=== PATIENT | female | born 1985 | race Two or more races ===

== ENCOUNTER 2024-07-18 17:36 | Emergency (ER) | payer SELFPAY ==
[2024-07-18 17:51] VITALS: BP 127/84; PULSE 78; RESP 16; TEMP 36.7; O2SAT 100; BMI 32.8
--- NOTE | 2024-07-18 18:27 | EKG_ITS ---
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
--- NOTE | 2024-07-18 18:45 | PD.EDRME ---
Rapid Medical Screening Exam [facility] Arrival date/time: 07/18/24 17:36 39F with no significant PMH presents to ED with some chest/ab pressure. Patient was upset when she found out her EKG was NSR. Patient eloped. Chief Complaint: Chest Pain Vital signs: Vital Signs Temperature 98.1 F 07/18/24 17:51 Pulse Rate 78 07/18/24 17:51 Respiratory Rate 16 07/18/24 17:51 Blood Pressure 127/84 07/18/24 17:51 Pulse Oximetry (%) 100 07/18/24 17:51 Oxygen Delivery Method Room Air 07/18/24 17:51
--- NOTE | 2024-07-18 18:45 | PC.NURSE ---
Pt assumed the provider was making fun of the reason why she was here. Provider made a comment out in the hallway about a different pt and the pt overheard this comment and assumed it was her who he was talking about. Pt left the room yelling. I told pt that he was not talking about her but she did not believe me and walked out.
== END 2024-07-18 18:45 | disposition left against medical advice (07) ==
PROVIDERS: Emergency Provider Emergency Medicine
DX: R07.89 Other chest pain (principal); Z53.21 Procedure and treatment not carried out due to patient leaving prior to being seen by health care provider
CPT/HCPCS: 93005; 99281

== ENCOUNTER → 2024-07-18 | Outpatient (CLI) | payer BC, SELFPAY ==
[2024-07-18 07:29] LABS: Misc Send Out* See Sep Rpt
[2024-07-18 08:04] LABS: Collection Type, Urine Clean Catch
[2024-07-18 08:37] LABS: Urea Breath Test Positive (Negative)
[2024-07-18 08:40] LABS: Bilirubin,Urine Negative (Negative); Blood,Urine Trace (Negative); Clarity,Urine Clear (Clear/Hazy); Color,Urine Yellow (Lt Yel-Yel); Glucose, Urine Negative (Negative); Ketones,Urine Negative (Negative); Leukocyte Esterase,Urine Negative (Negative); Nitrite,Urine Negative (Negative); Protein,Urine Trace (Neg - Trace); RBC,Urine 10 /hpf (0-3); Specific Gravity,Urine 1.029 (1.001-1.035); Squamous Epithelial Cell,Urine 8 /hpf (0-5); Urobilinogen,Urine Negative mg/dL (0.0-1.0); WBC,Urine 2 /hpf (0-5)
[2024-07-18 08:42] LABS: Basophils % (Auto) 0 % (0-2.5); Eosinophils # (Auto) 0.2 Thou/mm3 (0.0-0.5); Eosinophils % (Auto) 2 % (0-10); Hematocrit 42.1 % (36.0-46.0); Hemoglobin 14.5 g/dL (12.0-16.0); Immature Granulocytes % (Auto) 0 % (0-0); Immature Granulocytes Auto 0.02 Thou/mm3 (0.00-0.00); Lymphocytes # (Auto) 2.7 Thou/mm3 (1.0-4.8); Lymphocytes % (Auto) 40 % (10-50); Mean Corpuscular HGB Conc 34.4 g/dl (31.0-37.0); Mean Corpuscular Hemoglobin 31.1 pg (25.0-35.0); Mean Corpuscular Volume 90 fL (80-100); Monocytes # (Auto) 0.7 Thou/mm3 (0.0-0.8); Monocytes % (Auto) 10 % (0-12); Neutrophils # (Auto) 3.2 Thou/mm3 (1.8-7.7); Neutrophils % (Auto) 48 % (37-80); Nucleated Red Blood Cell % 0 /100 WBC (0); Platelet Count 249 Thou/mm3 (140-440); Red Blood Count 4.66 Miln/mm3 (4.00-5.20); White Blood Count 6.8 Thou/mm3 (3.6-11.0)
[2024-07-18 08:47] LABS: Alanine Aminotransferase 20 U/L (10-49); Albumin, Serum 4.3 gm/dL (3.5-5.0); Albumin/Globulin Ratio 1.8 (1.2-2.2); Alkaline Phosphatase 71 U/L (46-116); Amylase 85 U/L (30-118); Anion Gap 6 (7-16); Aspartate Amino Transferase 15 U/L (0-34); BUN/Creatinine Ratio 24 Ratio (12-20); Bilirubin,Total 0.5 mg/dL (0.3-1.2); Blood Urea Nitrogen 19 mg/dL (9-23); C-Reactive Protein 0.6 mg/dL (0.0-0.9); Calcium 9.4 mg/dL (8.3-10.6); Calcium (Corrected) 9.4 mg/dL (8.5-10.1); Carbon Dioxide 23.8 mMol/L (20.0-31.0); Chloride 107 mMol/L (98-107); Creatinine (Component) 0.8 mg/dL (0.6-1.3); Globulin 2.4 gm/dL (2.3-3.5); Glucose 108 mg/dL (74-106); Lipase 36 U/L (12-53); Osmolality,Calculated 277 (275-295); Potassium 4.1 mMol/L (3.4-5.1); Sodium 137 mMol/L (136-145); Total Protein 6.7 gm/dL (5.7-8.2); eGFR > 60 See Note
== END | disposition home or self-care (01) ==
PROVIDERS: PCP Internal Medicine; Referring Provider Specialist; Visit Provider Specialist
DX: R10.0 Acute abdomen (principal); B96.81 Helicobacter pylori [H. pylori] as the cause of diseases classified elsewhere
CPT/HCPCS: 36415; 80053; 81001; 82150; 83013; 83014; 83690; 85025; 86021; 86036; 86140; 86671

== ENCOUNTER → 2024-08-05 | Outpatient (CLI) | payer BC, SELFPAY ==
[2024-08-12 06:25] LABS: Calprotectin, Stool* 10 mcg/g
== END | disposition home or self-care (01) ==
LOC: SLDO 09:38
PROVIDERS: Referring Provider Specialist; Visit Provider Specialist
DX: R10.0 Acute abdomen (principal)
CPT/HCPCS: 83993

== ENCOUNTER → 2024-08-28 | Outpatient (CLI) | payer BC, SELFPAY ==
[2024-08-25 17:46] LABS: HCG Qualitative,Urine Negative
--- NOTE | 2024-08-28 09:00 | XR_ITS ---
Examination: CT abdomen with intravenous contrast CT pelvis with intravenous contrast 2-D coronal reconstructions 2-D sagittal reconstructions Date and time of exam:August 28, 2024 0958 hours Comparison May 03, 2012 INDICATIONS: Abdominal pain diarrhea nausea beginning 2 weeks ago. CTDI: vol (mGy) 10.4 DLP: (mGycm) 615 Technique: Multiple axial sections of the abdomen and pelvis have been obtained. 64 slice high-resolution scanner used. 3 mm axial sections have been obtained, post intravenous injection 60 cc Isovue-370, 30 cc dilute Gastrografin administered orally 2-D sagittal, coronal reconstructions obtained. Low dose protocols were performed. One or more of the following dose reduction techniques were used; automated exposure control, adjustment of the mA and/or KV according to patient size, use of iterative reconstruction technique. Findings: No focal liver or splenic lesions Absent gallbladder No pancreatic or adrenal mass No renal or ureteral calculi, no hydronephrosis Aorta normal size Normal appendix No bowel obstruction Intrauterine device satisfactory position Urinary bladder intact IMPRESSION: No renal or ureteral calculi, no hydronephrosis Normal appendix No nonspecific colitis or enteritis pattern
== END | disposition home or self-care (01) ==
PROVIDERS: PCP Internal Medicine; Referring Provider Specialist; Visit Provider Specialist
DX: R10.0 Acute abdomen (principal); Z32.00 Encounter for pregnancy test, result unknown
CPT/HCPCS: 74177; 81025; A4649; Q9963; Q9967

== ENCOUNTER 2024-09-08 07:30 | Day surgery (SDC) | payer BC, SELFPAY ==
[2024-09-05 10:31] LABS: HCG Qualitative,Urine Negative
[2024-09-05 14:14] VITALS: BMI 31.3
[2024-09-08] VITALS (10 sets, daily range): BP systolic 115–148; BP diastolic 78–94; PULSE 73–144; RESP 10–22; TEMP 36.1–36.9; O2SAT 97–100; BMI 33.0
[2024-09-08] MEDS: DiphenhydrAMINE INJ 50 MG/ML VIAL 25 MG IV (09:40)
[2024-09-08] MEDS: fentaNYL CIT INJ 50 mCg/ML AMP 2ML (ASD USE ONLY) IV (09:42)
[2024-09-08] MEDS: MEPERIDINE INJ 25 MG/ML VIAL (ASD USE ONLY) IV (09:48)
[2024-09-08] MEDS: ONDANSETRON INJ 2 MG/ML INJ 2 ML 4 MG IV (09:48)
[2024-09-08] MEDS: MIDAZOLAM INJ 1 MG/ML VIAL 2 ML (ASD USE ONLY) 2 MG IV (09:53)
[2024-09-08 10:01] LABS: Misc Send Out* See Sep Rpt
== END 2024-09-08 10:44 | disposition home or self-care (01) ==
PROVIDERS: PCP Internal Medicine; Referring Provider Specialist; Visit Provider Specialist
PROC: (CPT 43239; principal; 2024-09-08 10:15)
DX: K20.90 Esophagitis, unspecified without bleeding (principal); K22.2 Esophageal obstruction; K29.60 Other gastritis without bleeding; K29.50 Unspecified chronic gastritis without bleeding; B96.81 Helicobacter pylori [H. pylori] as the cause of diseases classified elsewhere
CPT/HCPCS: 43239; 43248; 81025; 87081; 87181; 87205; A4649; C1769; J1200; J2175; J2250; J2405; J3010

== ENCOUNTER → 2024-11-03 | Outpatient (CLI) | payer BC, SELFPAY ==
[2024-11-04 12:26] LABS: BVAG Candida Negative (Negative); Bacterial Vaginosis Markers Negative (Negative); Candida glabrata Positive (Negative); Candida krusei PCR Negative (Negative); Trichomonas Negative (Negative)
== END | disposition home or self-care (01) ==
LOC: SLDO 14:26
PROVIDERS: Referring Provider Specialist; Visit Provider Specialist
DX: N76.0 Acute vaginitis (principal); A59.01 Trichomonal vulvovaginitis; B37.89 Other sites of candidiasis
CPT/HCPCS: 81514

== ENCOUNTER → 2024-12-08 | Outpatient (CLI) | payer BC, SELFPAY ==
--- NOTE | 2024-12-08 14:51 | XR_ITS ---
Examination: Pelvic ultrasound, transabdominal, complete Technique: Transabdominal ultrasound of the pelvis performed using grayscale imaging Date and time of exam: December 08, 2024 1548 hours INDICATIONS: Hematuria episodes beginning 2 months ago pelvic pain FINDINGS: Uterus 8.1 cm, intrauterine device satisfactory position Endometrial stripe 0.5 cm Right ovary 2.8 cm arterial flow 15 mm follicular cyst Left ovary 2.7 cm arterial flow IMPRESSION: No uterine mass or intrauterine gestation
--- NOTE | 2024-12-08 14:51 | XR_ITS ---
Examination: Retroperitoneal ultrasound, complete Technique: Multiple high resolution grayscale images of the retroperitoneum obtained, including kidneys and bladder. Exam date and time:December 08, 2024 1514 hrs. Indications: Difficulty with urination 2 months Findings: Right kidney 10.5 cm cortex 1.9 cm Left kidney 11.9 cm cortex 1.8 cm No hydronephrosis or renal calculi Mild bilateral renal parenchymal scar formation No bladder mass Bladder prevoid volume 179 cc postvoid volume 9 cc Impression: Mild renal parenchymal scar formation No hydronephrosis
== END | disposition home or self-care (01) ==
LOC: CDIM 14:24
PROVIDERS: PCP Internal Medicine; Referring Provider Internal Medicine; Visit Provider Internal Medicine
DX: R31.9 Hematuria, unspecified (principal)
CPT/HCPCS: 76770; 76856

== ENCOUNTER → 2025-02-10 | Outpatient (CLI) | payer BC, SELFPAY ==
[2025-02-10 16:31] LABS: Basophils # (Auto) 0.1 Thou/mm3 (0.0-0.2); Basophils % (Auto) 1 % (0-2.5); Eosinophils # (Auto) 0.2 Thou/mm3 (0.0-0.5); Eosinophils % (Auto) 3 % (0-10); Hematocrit 38.9 % (36.0-46.0); Hemoglobin 14.2 g/dL (12.0-16.0); Immature Granulocytes % (Auto) 0 % (0-0); Immature Granulocytes Auto 0.02 Thou/mm3 (0.00-0.00); Lymphocytes # (Auto) 2.8 Thou/mm3 (1.0-4.8); Lymphocytes % (Auto) 39 % (10-50); Mean Corpuscular HGB Conc 36.5 g/dl (31.0-37.0); Mean Corpuscular Hemoglobin 31.4 pg (25.0-35.0); Mean Corpuscular Volume 86 fL (80-100); Monocytes # (Auto) 0.7 Thou/mm3 (0.0-0.8); Monocytes % (Auto) 9 % (0-12); Neutrophils # (Auto) 3.5 Thou/mm3 (1.8-7.7); Neutrophils % (Auto) 49 % (37-80); Nucleated Red Blood Cell % 0 /100 WBC (0); Platelet Count 246 Thou/mm3 (140-440); RDW Standard Deviation 39.3 fL (36.4-46.3); Red Blood Count 4.52 Miln/mm3 (4.00-5.20); White Blood Count 7.3 Thou/mm3 (3.6-11.0)
== END | disposition home or self-care (01) ==
LOC: COPL 15:01
PROVIDERS: PCP Internal Medicine; Referring Provider Plastic Surgery; Visit Provider Plastic Surgery
DX: N62 Hypertrophy of breast (principal)
CPT/HCPCS: 36415; 85025

== ENCOUNTER 2025-05-15 12:12 | Inpatient (IN) | payer BC, SELFPAY ==
[2025-05-15] VITALS (8 sets, daily range): BP systolic 115–144; BP diastolic 76–91; PULSE 64–98; RESP 13–98; TEMP 36.4–37.2; O2SAT 98–100; BMI 27.8
--- NOTE | 2025-05-15 | XR_ITS ---
Examinations: MRI Brain without intravenous contrast. MRA brain without intravenous contrast. MRA carotids without intravenous contrast 3-D vascular reconstructions Date and time of exam: May 15, 2025 6003 hours INDICATIONS: Stroke alert, onset focal neurologic deficit left arm and leg weakness and numbness beginning today. Technique: Multiple axial and sagittal images of the brain have been obtained MRA brain carotid images without contrast obtained, including 3-D postprocessing, vascular maximum intensity projection images Findings: Sellaturcica is not enlarged. The optic chiasm and infundibular stalk are not remarkable. Prepontine and interpeduncular cisterns are not enlarged. No localized enlargement of the medulla or moris. Fourth ventricle and cerebellar tonsils normal in position. Subacute hemorrhage is not seen. Fourth ventricle is midline. Mass in the cerebellopontine angle region is not evident. 7th and 8th nerve complexes exhibits symmetry. Globes are symmetrical with no retro-orbital mass. Increased white matter signal not seen Diffusion-weighted images demonstrate no focus of restricted diffusion Mass-effect upon the ventricular system is not identified. MRA carotid images no carotid stenoses. MRA brain images no cerebral large vessel arterial occlusions Impression: Negative for acute hemorrhage, mass effect or midline shift No acute infarct. No MR findings diagnostic for demyelinating disease
--- NOTE | 2025-05-15 12:21 | XR_ITS ---
Examination: CT brain head without contrast. 2-D sagittal coronal reconstructions Date and time of exam:May 15, 2025, 0029 hours INDICATIONS: Stroke alert, onset focal neurologic deficit today CTDI: vol (mGy):8.9 DLP: (mGycm):959 Technique: Multiple CT axial sections of the brain have been obtained, 5 mm slice thickness. Contrast has not been administered. 2-D sagittal, coronal reconstructions have been obtained Low dose protocols were performed. One or more of the following dose reduction techniques were used; automated exposure control, adjustment of the mA and/or KV according to patient size, use of iterative reconstruction technique. Findings: No significant ventricular enlargement. Intra-axial or extra-axial hemorrhage density is not seen. No mass effect or midline shift Basal cisterns are not remarkable. Fourth ventricle is midline. Cranial vault intact. Impression: Negative for acute hemorrhage, mass effect or midline shift
--- NOTE | 2025-05-15 12:21 | EKG_ITS ---
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
--- NOTE | 2025-05-15 12:21 | XR_ITS ---
Examination: AP chest single view TECHNIQUE: AP portable upright chest single view Date and time: May 15, 2025, 1323 hours INDICATIONS: Stroke alert this morning FINDINGS: Normal heart size No aspiration pneumonia The osseous structures are intact IMPRESSION: Negative for aspiration pneumonia
--- NOTE | 2025-05-15 12:21 | XR_ITS ---
Examination: CTA carotids with intravenous contrast CTA brain, head with intravenous contrast. 2-D sagittal, coronal reconstructions. 3-D reconstructions. Exam date and time: May 15, 2025 1235 hours INDICATIONS: Stroke alert, onset focal neurologic deficit left-sided head pain left-sided facial numbness beginning 3:00 AM this morning CTDI: vol (mGy) 34 DLP: (mGycm) 481 Technique: Multiple CTA axial brain, head carotid images post intravenous contrast injection 75 cc, Isovue-370. 2-D sagittal, coronal reconstructions. 3-D reconstructions, 3-D post processing including vascular maximum intensity projection images. Low dose protocols were performed. One or more of the following dose reduction techniques were used; automated exposure control, adjustment of the mA and/or KV according to patient size, use of iterative reconstruction technique. Findings: Thyromegaly with subtle bilateral thyroid nodules No significant common carotid carotid bifurcation or internal carotid artery stenoses Mildly dominant right vertebral artery in the neck with no critical stenoses No cerebral large vessel arterial occlusions or thrombus IMPRESSION: No significant neck arterial stenoses No cerebral large vessel arterial occlusions or thrombus
--- NOTE | 2025-05-15 12:22 | PD.EDNEURO ---
Neuro Symptoms Deficit-E/HPI General Chief Complaint: Neuro Symptoms/Deficit Stated Complaint: LEFT ARM NUMBNESS AND WEAKNESS SINCE 0300 Time Seen by Provider: 05/15/25 12:21 Arrival date/time: 05/15/25 12:12 RME / HPI RME / HPI Narrative: 39-year-old female patient with no significant past medical history, came in for evaluation regarding left arm weakness and numbness since 3:00 this morning. Patient woke up at 3:00 this morning with left arm numbness and weakness, severity moderate. 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 Patient also complained of mild headache. Denies any dizziness.. Decided to come here for further evaluation. Patient is not taking any blood thinner. Patient denies any fever. Denies any slurred speech. Patient denies any neck pain. Denies any similar episode in the past. Denies any trauma or fall lately. Related Data Allergies Allergy/AdvReac Type Severity Reaction Status Date / Time morphine AdvReac Unknown Rash Verified 05/15/25 12:18 Review of Systems Review of Systems Narrative Review of Systems: Review of system reviewed and within normal limits except mentioned in HPI ED Exam Narrative Physical exam: VITAL SIGNS: Reviewed. GENERAL APPEARANCE: Alert and interactive, follows commands, no acute distress, HEAD AND FACE: Non-traumatic. ENT: PERRL, pink conjunctivitis, eyelid no trauma, Mucous membrane moist. NECK: Supple, nontender, no nuchal rigidity. CHEST: No tenderness, no crepitus, no paradoxical movement, no retractions. LUNGS: Clear, well ventilated, symmetric, no rales, no wheezing, no ronchi, no stridor, good breath sounds bilaterally. HEART: Regular rate, regular rhythm, no murmur, no gallops. ABDOMEN: Soft, positive bowel sounds, nondistended, no guarding, nontender, no rebound, no masses, RECTAL: Deferred. GENITAL: Deferred. NEUROLOGICAL: Gross motor function intact sensory function intact, Appropriate for age. MUSCULOSKELETAL: low back nontender, full range of motion. EXTREMITIES: Left upper extremity drifting noted, with paresthesia, decreased muscle parcel post weigher on the left upper extremity, no weakness on the lower extremity bilateral SKIN: Color pink, dry, no rash, no lacerations, no abrasions, no contusions. LYMPHATICS: Deferred. Course Quality Measures none Orders Category Date Time Status Bedside Blood Glucose NOW Care 05/15/25 12:21 Active COVID-19 Screening Questionnaire NOW Care 05/15/25 14:22 Active Green Promotions Specialist NOW Care 05/15/25 12:21 Active Continuous Pulse Oximetry NOW Care 05/15/25 12:21 Completed Decision to Admit X1 Care 05/15/25 14:22 Completed EKG (ED ONLY) *Do not use* NOW Care 05/15/25 12:21 Completed In and Out Catheter NEEDED Care 05/15/25 12:21 Active Insert IV NOW Care 05/15/25 12:21 Active NIH Stroke Scale now Care 05/15/25 12:21 Active NPO NOW Care 05/15/25 12:21 Active Nurse Swallow Screen x1 Care 05/15/25 12:21 Active Consult to Neurology / Tele-Neurology Routine Cons 05/15/25 12:[address] angio stroke protocol Stat Exams 05/15/25 12:[address] stroke protocol Stat Exams 05/15/25 12:21 Completed EKG (ED Only) Stat Exams 05/15/25 12:21 Draft XR chest 1V portable Stat Exams 05/15/25 12:21 Completed CBC Stat Lab 05/15/25 12:24 Completed Comprehensive Metabolic Panel Stat Lab 05/15/25 12:24 Completed Drug Screen,Urine Stat Lab 05/15/25 14:40 Completed HCG Titer if Positive Stat Lab 05/15/25 12:24 Completed Magnesium Stat Lab 05/15/25 12:24 Completed Partial Thromboplastin Time Stat Lab 05/15/25 12:24 Completed Prothrombin Time with INR Stat Lab 05/15/25 12:24 Completed Troponin I Stat Lab 05/15/25 12:24 Completed Urinalysis, C/S if Indicated Stat Lab 05/15/25 14:40 Completed Aspirin [Ecotrin] Med 05/15/25 12:58 Discontinued 81 mg PO X1 ONE Labetalol IV [Trandate IV] Med 05/15/25 12:21 Discontinued 10 mg IVP Q15M PRN Ondansetron Inj [Zofran Inj] Med 05/15/25 12:21 Active 4 mg IVP Q4HR PRN Oxygen Delivery NOW RT 05/15/25 12:21 Active Vital Signs Vital signs: Vital Signs Temperature 98.9 F 05/15/25 12:20 Pulse Rate 98 05/15/25 12:20 Respiratory Rate 16 05/15/25 12:20 Blood Pressure 138/78 H 05/15/25 12:20 Pulse Oximetry (%) 98 05/15/25 12:20 Oxygen Delivery Method Room Air 05/15/25 12:20 Neuro Symptoms / Deficit MDM Narrative MDM Narrative:: 39-year-old female patient with no significant past medical history, came in for evaluation regarding left arm weakness and numbness since 3:00 this morning. Patient woke up at 3:00 this morning with left arm numbness and weakness, severity moderate. 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 Patient also complained of mild headache. Denies any dizziness.. Decided to come here for further evaluation. Patient is not taking any blood thinner. Patient denies any fever. Denies any slurred speech. Patient denies any neck pain. Denies any similar episode in the past. Denies any trauma or fall lately. EKG showed sinus rhythm, ventricular rate of 92 bpm, no ST segment elevation or depression noted. Stroke alert was initiated right away 12:[address] scan of the head came back unremarkable. CT scan a of the head and neck also came back normal. Laboratory workup all came back unremarkable, patient case discussed with teleneurologist, who recommends admission for stroke workup. Patient was given aspirin 81 mg p.o. Patient data External records reviewed:: None Clinical information provided by:: patient Social determinants that could affect healthcare access:: none Patient has the following chronic illnesses:: None How is presenting disease/condition affected by chronic disease/condition?: no chronic disease Evaluation data The following diagnostics were reviewed and interpreted by me:: lab results, radiology exam(s) and EKG tracing(s) Lab and/or radiology exams considered but not ordered:: None Interpretation Summary: None Medications / Prescriptions Medications or Prescriptions considered but not ordered:: None Medication administrations:: Medication Administration History Acetaminophen (Acetaminophen 500 Mg Tablet) 1,000 mg PO Q6H PRN PRN Reason: PAIN OR FEVER > 100.4 Stop: 06/14/25 14:37 Aspirin (Aspirin Ec 81 Mg Tabec) 81 mg PO QDAY RAMBO Stop: 06/15/25 08:59 Sodium Chloride (Ns) 1,000 mls @ 75 mls/hr IV .[id number] RAMBO Stop: 06/14/25 14:44 Last Admin: 05/15/25 15:37 Dose: 75 mls/hr Documented By: RUY Ondansetron HCl (Ondansetron Inj 2 Mg/Ml Inj 2 Ml) 4 mg IVP Q4HR PRN PRN Reason: NAUSEA OR VOMITING Stop: 06/14/25 12:20 Pantoprazole Sodium (Pantoprazole Inj 40 Mg Vial) 40 mg IVP QDAY RAMBO Stop: 06/15/25 08:59 Discontinued Medications Aspirin (Aspirin Ec 81 Mg Tabec) 81 mg PO X1 ONE Stop: 05/15/25 12:59 Last Admin: 05/15/25 13:09 Dose: 81 mg Documented By: RUY Labetalol HCl (Labetalol Inj 5 Mg/Ml Vial 20 Ml) 10 mg IVP Q15M PRN PRN Reason: HYPER Stop: 05/15/25 14:21 Aspirin Consultations Consultation(s) initiated? (list below): Yes Consultation #1 (Physician, Specialty, Details): Teleneurologist thank you Diagnosis Neuro Differential Diagnosis: cerebrovascular accident and transient cerebral ischemia Most likely diagnosis given after review of the tests above:: Strokelike symptoms Admission Indicated Admission indicated?: not indicated Admission Request Was there a request for admission?: Yes Admission Attestation Admission request attestation: Discussed case with [Dr Mayberry] from Hospitalist service regarding admission. Discussed patients ED course, exam findings, labs, and radiology results. The Hospitalist [agrees,] to accept the patient for admission. Disposition Plan Disposition Plan: Admit Discharge Plan Plan Patient Disposition: Admit Acute Care w/in Hospital Discharge Disposition comment: Stable Problem List Clinical Impression: Stroke-like symptom Patient/Caregiver Discharge Instructions Discharge Activity: activity as tolerated
--- NOTE | 2025-05-15 12:31 | ESCONSULT_ITS ---
Tele Neuro Consultation Consultation Date 05/15/25 Consultation Narrative [facility] Tele[facility]rology Consult [facility] Patient Name:???Maribel Miner Date of :???1985 Identification Number:??? Date of Service:???05/15/2025 12:21:10 Diagnosis:?R20.2 - Paresthesia of skin Impression: ?39 year old otherwise healthy female presenting with left arm numbness in no particular distribution. Will recommend rule-out MRI brain and C spine; treat headache symptomatically. Consider other etiologies. If MRIs negative f/u outpatient neurology for EMG/nerve conduction studies if symptoms persist. Our recommendations are outlined below. Recommendations: ? Stroke/Telemetry Floor ? Neuro Checks (Q4) ? Bedside Swallow Eval ? DVT Prophylaxis ? IV Fluids, Normal Saline ? Head of Bed 30 Degrees ? Euglycemia and Avoid Hyperthermia (PRN Acetaminophen) ? Initiate or continue Aspirin 81 MG daily ?BP management per routine ?MRIs as above Advanced Imaging:Advanced imaging has been ordered. Results pending. Metrics: Last Known Well: 05/15/2025 03:00:00 Dispatch Time: 05/15/2025 12:21:10 Arrival Time: 05/15/2025 12:12:00 Initial Response Time: 05/15/2025 12:23:24Symptoms: left arm numbness. Initial patient interaction: 05/15/2025 12:32:34 NIHSS Assessment Completed: 05/15/2025 12:38:27Patient is not a candidate for Thrombolytic. Thrombolytic Medical Decision: 05/15/2025 12:38:28Patient was not deemed candidate for Thrombolytic because of following reasons: LKW outside 4.[address] Head: I personally reviewed all the CT images that were available to me and it showed: no acute abnormalities pending radiology report. ED Physician not notified of diagnostic impression and management plan because Attempted to reach primary provider at 05/15/2025 12:40:13 History of Present Illness:Patient is a 39 year old Female. Patient was brought by private transportation with symptoms of left arm numbness. The patient presents after awakening overnight with numbness of the left arm from the shoulder down. This involved all fingers of the left hand. She denies any numbness in the face or leg. She denies any motor, speech, gait or visual symptoms. She notes mild headache. ? Past Medical History: ?There is no history of Hypertension ?There is no history of Diabetes Mellitus Medications: No Anticoagulant use? No Antiplatelet use Reviewed EMR for current medications Allergies:? Reviewed Social History: Smoking: No Family History: There is no family history of premature cerebrovascular disease pertinent to this consultation ROS : 14 Points Review of Systems was performed and was negative except mentioned in HPI. Past Surgical History: There Is No Surgical History Contributory To Today?s Visit ? Examination: BP(130/70),?Pulse(96),?Blood Glucose(87) 1A: Level of Consciousness - Alert; keenly responsive?+ 0 1B: Ask Month and Age - Both Questions Right?+ 0 1C: Blink Eyes & Squeeze Hands - Performs Both Tasks?+ 0 2: Test Horizontal Extraocular Movements - Normal?+ 0 3: Test Visual Coto - No Visual Loss?+ 0 4: Test Facial Palsy (Use Grimace if Obtunded) - Normal symmetry?+ 0 5A: Test Left Arm Motor Drift - No Drift for 10 Seconds?+ 0 5B: Test Right Arm Motor Drift - No Drift for 10 Seconds?+ 0 6A: Test Left Leg Motor Drift - No Drift for 5 Seconds?+ 0 6B: Test Right Leg Motor Drift - No Drift for 5 Seconds?+ 0 7: Test Limb Ataxia (FNF/Heel-Rodríguez) - No Ataxia?+ 0 8: Test Sensation - Normal; No sensory loss?+ 0 9: Test Language/Aphasia - Normal; No aphasia?+ 0 10: Test Dysarthria - Normal?+ 0 11: Test Extinction/Inattention - No abnormality?+ 0 NIHSS Score:?0 Pre-Morbid Modified Borden Scale: 0 Points = No symptoms at all This consult was conducted in real time using interactive audio and video technology. Patient was informed of the technology being used for this visit and agreed to proceed. Patient located in hospital and provider located at home/office setting. Patient is being evaluated for possible acute neurologic impairment and high probability of imminent or life-threatening deterioration. I spent total of 35 minutes providing care to this patient, including time for face to face visit via telemedicine, review of medical records, imaging studies and discussion of findings with providers, the patient and/or family. Dr Jerrell Alegre [facility] For Inpatient follow-up with [facility] physician please call [facility] at . As we are not an outpatient service for any post hospital discharge needs please contact the hospital for assistance. If you have any questions for the [facility] physicians or need to reconsult for clinical or diagnostic changes please contact us via [facility] at . Signature :?Jerrell Alegre
[2025-05-15 12:35] LABS: Basophils # (Auto) 0.1 Thou/mm3 (0.0-0.2); Basophils % (Auto) 1 % (0-2.5); Eosinophils # (Auto) 0.2 Thou/mm3 (0.0-0.5); Eosinophils % (Auto) 2 % (0-10); Hematocrit 44.3 % (36.0-46.0); Hemoglobin 15.5 g/dL (12.0-16.0); Immature Granulocytes Auto 0.02 Thou/mm3 (0.00-0.00); Lymphocytes # (Auto) 4.1 Thou/mm3 (1.0-4.8); Lymphocytes % (Auto) 46 % (10-50); Mean Corpuscular HGB Conc 35.0 g/dl (31.0-37.0); Mean Corpuscular Hemoglobin 31.2 pg (25.0-35.0); Mean Corpuscular Volume 89 fL (80-100); Monocytes # (Auto) 0.9 Thou/mm3 (0.0-0.8); Monocytes % (Auto) 10 % (0-12); Neutrophils # (Auto) 3.7 Thou/mm3 (1.8-7.7); Neutrophils % (Auto) 42 % (37-80); Nucleated Red Blood Cell # 0.00 Thou/mm3 (0.00-0.00); Nucleated Red Blood Cell % 0 /100 WBC (0); Platelet Count 232 Thou/mm3 (140-440); RDW Standard Deviation 39.8 fL (36.4-46.3); Red Blood Count 4.97 Miln/mm3 (4.00-5.20); White Blood Count 8.8 Thou/mm3 (3.6-11.0)
[2025-05-15 12:51] LABS: INR 1.0 (0.9-1.3); Partial Thromboplastin Time 30.9 Seconds (22.0-36.0); Prothrombin Time 10.8 Seconds (9.0-12.2)
[2025-05-15 12:57] LABS: Alanine Aminotransferase 23 U/L (10-49); Albumin, Serum 4.8 gm/dL (3.5-5.0); Albumin/Globulin Ratio 1.7 (1.2-2.2); Alkaline Phosphatase 76 U/L (46-116); Anion Gap 13 (7-16); Aspartate Amino Transferase 19 U/L (0-34); BUN/Creatinine Ratio 14 Ratio (12-20); Bilirubin,Total 0.6 mg/dL (0.3-1.2); Blood Urea Nitrogen 11 mg/dL (9-23); Calcium 9.7 mg/dL (8.3-10.6); Calcium (Corrected) 9.7 mg/dL (8.5-10.1); Carbon Dioxide 22.1 mMol/L (20.0-31.0); Chloride 104 mMol/L (98-107); Creatinine (Component) 0.8 mg/dL (0.6-1.3); Globulin 2.9 gm/dL (2.3-3.5); Glucose 89 mg/dL (74-106); Magnesium 2.1 mg/dL (1.6-2.6); Osmolality,Calculated 275 (275-295); Potassium 3.4 mMol/L (3.4-5.1); Sodium 139 mMol/L (136-145); Total Protein 7.7 gm/dL (5.7-8.2); Troponin I < 0.002 ng/mL (0.0-0.045); eGFR > 60 See Note
[2025-05-15 13:02] LABS: HCG Titer if Positive Negative
[2025-05-15] MEDS: ASPIRIN EC 81 MG TABEC PO (13:09)
[2025-05-15 14:45] LABS: Collection Type, Urine Clean Catch
[2025-05-15 14:56] LABS: Bilirubin,Urine Negative (Negative); Blood,Urine Negative (Negative); Clarity,Urine Clear (Clear/Hazy); Color,Urine Lt-Yellow (Lt Yel-Yel); Culture Indicated,Urine Not Indicated; Glucose, Urine Negative (Negative); Ketones,Urine Trace (Negative); Leukocyte Esterase,Urine Positive (Negative); Nitrite,Urine Negative (Negative); PH,Urine 6.0 (5.0-7.0); Protein,Urine Negative (Neg - Trace); RBC,Urine 5 /hpf (0-3); Specific Gravity,Urine 1.029 (1.001-1.035); Squamous Epithelial Cell,Urine 4 /hpf (0-5); Urobilinogen,Urine Negative mg/dL (0.0-1.0); WBC,Urine 3 /hpf (0-5)
[2025-05-15 15:00] LABS: Amphetamine/Methamp Scrn,U Negative (Negative); Barbiturate Screen,Urine Negative (Negative); Benzodiazepines Screen,Urine Negative (Negative); Benzoylecgonine Screen, Ur Negative (Negative); Fentanyl Screen,Urine Negative (Negative); Opiate Screen,Urine Negative (Negative); THC Screen,Urine Negative (Negative)
--- NOTE | 2025-05-15 15:06 | ESHP_ITS ---
<Statement entered by Brandon Mayberry MD - 05/16/25 01:51> Maribel Miner is a 39-year-old female with a past medical history of Kristi's disease, mitral valve prolapse, H. pylori, bilateral carpal tunnel disease who admitted for stroke workup. Presented with left upper and lower extremity weakness and numbness started around 3 AM on day of presentation and arrived to the ED outside of window period. CT and CTA head/neck negative. Teleneurology consulted and recommended to admit and obtain MRI brain. Will continue with stroke rule out including MRI as mentioned and echo and await further recommendations from neurology. ----- Note reviewed and agree with care plan as documented. Please refer to the note below for further details. Plan discussed with attending physician Dr. Galileo Mayberry MD PGY-2 Internal Medicine Documentation for date of: 05/15/25 HPI History of Present Illness Chief complaint: Left arm weakness/numbness History of present illness: Maribel Miner, 39 year old female with past medical history of Kristi disease, mitral valve prolapse, H. pyolori, and bilateral carpal tunnel disease presented to the ED today with left arm and leg weakness and numbness. Patient woke up today morning at 3:00 am in panic because her left arm was weak and she could not feel it. Patient reported no other deficits and she has never had symptoms like this before. Patient still managed to drive to work but numbness and weakness got even worse at work and she decided to come to the ED. Patient reported she had feeling of being pulled to the left, and could not lift heavy objects with left hand, had the feeling of arm giving out . Since arriving at the ED, patient reports that the left arm weakness and numbness has improved, but she has also developed similar symptoms in the left leg which didn't exist initially. Patient notes that the blood pressure cuff inflating on the left arm yields mild improvement in symptoms. Patient is not taking any blood thinner. Patient denies any neck pain. Denies any similar episode in the past. Denies any trauma or fall lately. Patient denies any hearing or vision changes, no facial asymmetry, and no difficulty with speech. No fever, chills, SOB, or chest pain. PMH: Kristi disease, mitral valve prolapse, H. Pyolori, bilateral carpal tunnel disease PSHx: None Med: None Family History: Mother had a mini stroke at the age of 50. No residual motor or sensory deficits. Father has DM II. Allergies: None Social: Patient lives in [place] at a home with and 3 kids. Has good support system at home. 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 Does not drink alcohol (used to drink socially but quit severeal months ago). No smoking history. Denies any drug use. Code: Full ED course: - Vitals on arrival: 98.9 F, HR 98, RR 16, BP 138/78, O2 98 on room air - EKG showed sinus rhythm, ventricular rate of 92 bpm, no ST segment elevation or depression noted. - Head and neck CTA: No significant neck arterial stenosis. No cerebral large vessel arterial occlusions or thrombus - Head CT: Negative for acute hemorrhage, mass effect or midline shift. - Chest X-ray: Normal heart size, No aspiration pneumonia, The osseous structures are intact. - CBC and CMP unremarkable - Tele neuro consulted: NIHSS score of 0. Patients admitted for left upper and lower extremity weakness and numbness, stroke rule out. Exam Vital Signs Temp Pulse Resp BP Pulse Ox O2 Del Method 98.7 F 64 18 140/84 H 98 Room Air 05/15/25 14:29 05/15/25 14:29 05/15/25 14:29 05/15/25 14:29 05/15/25 14:05/15/25 14:29 Narrative Exam General: Patient is fully alert and oriented. In no acute distress. Cardio: RRR, no murmurs, gallops or rubs appreciated. Resp: Normal lung sounds, no rales or wheezing auscultated. MSK/ Extremities: No bruising or skin changes visible. No presence of trace or pitting edema in lower extremities bilaterally, dorsalis pedis pulses +2 bilaterally. Noticeable strength deficit Left upper and lower extremity 3/5, right upper and lower extremity 5/5. Left upper extremity drift positive. GI: No abdominal distension, normal bowel sounds. No abdominal tenderness in any quadrants. Neuro: AAOx3, cranial nerves 2-12 intact. Motor deficit in left upper and lower extremity, stregnth 3/5. No focal sensory deficits in the UE or LE bilat. Psych: Good judgement, thought and behavior. Cooperative Results: Labs 05/16/25 04:47 05/16/25 04:47 Labs: Short CBC 05/15/25 Range/Units 12:24 WBC 8.8 (3.6-11.0) Thou/mm3 Hgb 15.5 (12.0-16.0) g/dL Hct 44.3 (36.0-46.0) % Plt Count 232 (140-440) Thou/mm3 BMP 05/15/25 12:24 Sodium 139 Potassium 3.4 Chloride 104 Carbon Dioxide 22.1 BUN 11 Creatinine 0.8 Glucose 89 Calcium 9.7 Cardiac Enzymes 05/15/25 Range/Units 12:24 Troponin I < 0.002 (0.0-0.045) ng/mL Liver Function 05/15/25 Range/Units 12:24 Total Bilirubin 0.6 (0.3-1.2) mg/dL AST 19 (0-34) U/L ALT 23 (10-49) U/L Alkaline Phosphatase 76 (46-116) U/L Albumin 4.8 (3.5-5.0) gm/dL Urine 05/15/25 Range/Units 14:40 Urine Color Lt-Yellow (Lt Yel-Yel) Urine Clarity Clear (Clear/Hazy) Urine pH 6.0 (5.0-7.0) Ur Specific [place] 1.029 (1.001-1.035) Urine Protein Negative (Neg - Trace) Urine Glucose (UA) Negative (Negative) Quality Measures Quality Measures VTE prophylaxis Medications Home Medications and Allergies Home Medications ?Medication ?Instructions ?Recorded ?Confirmed ?Type No Known Home Medications 05/15/2505/04 History Allergies Allergy/AdvReac Type Severity Reaction Status Date / Time morphine AdvReac Unknown Rash Verified 05/15/25 12:18 Visit Medications Acetaminophen (Acetaminophen 500 Mg Tablet) 1,000 mg PO Q6H PRN PRN Reason: PAIN OR FEVER > 100.4 Stop: 06/14/25 14:37 Aspirin (Aspirin Ec 81 Mg Tabec) [address] [facility] Stop: 06/15/25 08:59 Sodium Chloride (Ns) 1,000 mls @ 75 mls/hr IV .[id number] RAMBO Stop: 06/14/25 14:44 Ondansetron HCl (Ondansetron Inj 2 Mg/Ml Inj 2 Ml) 4 mg IVP Q4HR PRN PRN Reason: NAUSEA OR VOMITING Stop: 06/14/25 12:20 Pantoprazole Sodium (Pantoprazole Inj 40 Mg Vial) 40 mg IVP QDAY RAMBO Stop: 06/15/25 08:59 Discontinued Medications Aspirin (Aspirin Ec 81 Mg Tabec) 81 mg PO X1 ONE Stop: 05/15/25 12:59 Last Admin: 05/15/25 13:09 Dose: 81 mg Labetalol HCl (Labetalol Inj 5 Mg/Ml Vial 20 Ml) 10 mg IVP Q15M PRN PRN Reason: HYPER Stop: 05/15/25 14:21 Assessment & Plan Plan Maribel Miner, 39 year old female with past medical history of hoshimoto disease, mitral valve prolapse, H. Pyolori, and bilateral carpal tunnel disease, presented to the ED with left upper and lower extremity weakness and numbness. Admitted for stroke rule out and neurological deficit management. #Left upper and lower extremity weakness and numbness Patient woke up with left arms numbness and weakness. Symptoms initially worsened but then self improved. Tele neuro consulted: NIHSS score 0 Head and neck CTA unremarkable: No significant neck arterial stenosis. No cerebral large vessel arterial occlusions or thrombus Head CT unremarkable : Negative for acute hemorrhage, mass effect or midline shift. Bedside Swallow Eval done - passed - Admitted to tele - Neuro Checks (Q4) - DVT Prophylaxis- SCD - IV Fluids, Normal Saline 75ml/hr - Head of Bed 30 Degrees - Euglycemia and Avoid Hyperthermia (PRN Acetaminophen) - Aspirin 81 MG daily - BP management per routine - MRIs brain and C spine #History of Kristi disease - TSH ordered - Cont outpatient management as needed. #History of H Pyolori - GI prophylaxis with protonix - Continue outpatient management as needed. # Carpal tunnel disease - Continue outpatient management #Mitral valve prolapse - Continue outpatient care with cardiology as usual. - In patient monitor for any rhythm changes and palpitations. Health Maintenance: Code Status: Full DVT Prophylaxis: SCDs GI Prophylaxis: Protonix Diet: Regular diet (swallow evaluation passed) Weber: None Lines: PIV Supplemental O2: None Disposition: Tele, pending head and neck MRI Patient seen and care discussed with my attending physician, Dr. Auguste and my senior resident Dr. Toro Seymour, OMS-IV Attending Provider Attestation/Addendum I, Chanelle Auguste DO, attest that I was physically present for the shepard portions of the service and evaluated the patient with the resident and I reviewed and discussed the case with the resident and agree with the resident's findings and plans of care as documented above Patient is a 39-year-old female with past medical history of carpal tunnel syndrome who presented to the ED due to sudden onset of left upper extremity weakness that began 3 in the morning. She stated that she went back to bed to rest and let her symptoms resolved. However, the symptoms returned in the morning during which she stated that her arm felt heavy and had some [id number]. Patient subsequently came to the ED due to concern for possible CVA. A stroke alert was called. Patient was seen by teleneurology and recommended further stroke workup. MRI was ordered. Patient denies laying on her left side or similar symptoms in the past. She also denies any neck injuries in the past. She does have carpal tunnel syndrome which she is following up with orthopedic surgeon. However, her numbness and tingling is radiating up to her shoulder. Suspect neuropathy versus radiculopathy. Will admit patient to telemetry for further workup of possible CVA. Will follow-up with neurology recommendations.
[2025-05-15] MEDS: SODIUM CHLORIDE 0.9% 1000 ML 1,000 ML 75 ML IV (15:37)
--- NOTE | 2025-05-15 19:00 | PC.NURSE ---
DURING SHIFT CHANGE PT VERBALIZED WANTED TO GO HOME AMA, EXPLAINED RIGHTS AND RISK OF AMA, PT DECIDED TO STAY. DR. DODD NOTIFIED. NO NEW ORDER. PT RESTING ON BED WITH CALL LIGHT WITHIN REACH.
--- NOTE | 2025-05-15 23:19 | ESPR_ITS ---
Documentation for date of: 05/15/25 Subjective Subjective Interval history: Patient was seen in telemetry today with her family at the bedside, she still has left UE weakness and heaviness, better than from admission. She does have CTS syndrome symptoms and denies any headache/migraine. Exam - Neurology Vital Signs Temp Pulse Resp BP Pulse Ox O2 Del Method 97.8 F 79 13 115/84 98 Room Air 05/15/25 19:47 05/15/25 20:00 05/15/25 19:47 05/15/25 19:47 05/15/25 19:47 05/15/25 19:47 Objective Labs 05/15/25 12:24 05/15/25 12:24 Labs: Laboratory Results - last 24 hr 05/15/25 05/15/25 12:24 14:40 WBC 8.8 RBC 4.97 Hgb 15.5 Hct 44.3 MCV 89 MCH 31.2 MCHC 35.0 RDW Std Deviation 39.8 Plt Count 232 Neut % (Auto) 42 Lymph % (Auto) 46 [place] % (Auto) 10 Eos % (Auto) 2 Baso % (Auto) 1 Neut # (Auto) 3.7 Lymph # (Auto) 4.1 [place] # (Auto) 0.9 H Eos # (Auto) 0.2 Baso # (Auto) 0.1 Immature Gran # (Auto) 0.02 H Absolute Nucleated RBC 0.00 Immature Gran % 0 Nucleated RBC % 0 PT 10.8 INR 1.0 APTT 30.9 Sodium 139 Potassium 3.4 Chloride 104 Carbon Dioxide 22.1 Anion Gap 13 BUN 11 Creatinine 0.8 Estim Creat Clear Calc Not Performed. eGFR > 60 BUN/Creatinine Ratio 14 Glucose 89 Calculated Osmolality 275 Calcium 9.7 Corrected Calcium 9.7 Magnesium 2.1 Total Bilirubin 0.6 AST 19 ALT 23 Alkaline Phosphatase 76 Troponin I < 0.002 Total Protein 7.7 Albumin 4.8 Globulin 2.9 Albumin/Globulin Ratio 1.7 Ur Collection Type Clean Catch Urine Color Lt-Yellow Urine Clarity Clear Urine pH 6.0 Ur Specific [place] 1.029 Urine Protein Negative Urine Glucose (UA) Negative Urine Ketones Trace Urine Blood Negative Urine Nitrite Negative Urine Bilirubin Negative Urine Urobilinogen (Auto) Negative Ur Leukocyte Esterase Positive Urine RBC 5 H Urine WBC 3 Ur Squamous Epith Cells 4 Urine Bacteria None Ur Culture Indicated? Not Indicated Urine Opiates Screen Negative Urine Fentanyl Screen Negative Ur Barbiturates Screen Negative U Amphetamin/Meth Scrn Negative U Benzodiazepines Scrn Negative U Cocaine Metab Screen Negative U Marijuana (THC) Screen Negative HCG (Qual) Negative Assessment & Plan Assessment and plan (1) Stroke-like symptom: Status: Acute Assessment and plan: reassured her that the workup is negative. 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 She is encouraged to move the left UE as before to prevent further weakness and spasticity. No need for antiplatelet therapy or statin. (2) Carpal tunnel syndrome: Status: Chronic Assessment and plan: will do EMG AND NCS of both US of both UE in my office upon referral to evaluate further. Her presentation is not from CTS.
[2025-05-16] VITALS: BP 108/74; PULSE 57; PULSE 77; RESP 19; TEMP 37.1; O2SAT 98
[2025-05-16 04:00] VITALS: BP 105/71; PULSE 59; PULSE 60; RESP 18; TEMP 36.8; O2SAT 99
[2025-05-16] MEDS: SODIUM CHLORIDE 0.9% 1000 ML 1,000 ML 75 ML IV (04:29)
[2025-05-16 04:56] VITALS: BMI 29.0
[2025-05-16 05:50] LABS: Basophils # (Auto) 0.1 Thou/mm3 (0.0-0.2); Basophils % (Auto) 1 % (0-2.5); Eosinophils # (Auto) 0.1 Thou/mm3 (0.0-0.5); Eosinophils % (Auto) 2 % (0-10); Hematocrit 37.7 % (36.0-46.0); Hemoglobin 13.1 g/dL (12.0-16.0); Immature Granulocytes Auto 0.02 Thou/mm3 (0.00-0.00); Lymphocytes # (Auto) 2.6 Thou/mm3 (1.0-4.8); Lymphocytes % (Auto) 39 % (10-50); Mean Corpuscular HGB Conc 34.7 g/dl (31.0-37.0); Mean Corpuscular Hemoglobin 32.3 pg (25.0-35.0); Mean Corpuscular Volume 93 fL (80-100); Monocytes # (Auto) 0.7 Thou/mm3 (0.0-0.8); Monocytes % (Auto) 10 % (0-12); Neutrophils # (Auto) 3.1 Thou/mm3 (1.8-7.7); Neutrophils % (Auto) 47 % (37-80); Nucleated Red Blood Cell # 0.00 Thou/mm3 (0.00-0.00); Nucleated Red Blood Cell % 0 /100 WBC (0); Platelet Count 190 Thou/mm3 (140-440); RDW Standard Deviation 42.9 fL (36.4-46.3); Red Blood Count 4.06 Miln/mm3 (4.00-5.20); White Blood Count 6.6 Thou/mm3 (3.6-11.0)
[2025-05-16 06:01] LABS: Glucose Estimated Average 103 mg/dL (80-131); Hemoglobin A1C 5.2 % Hgb (4.8-6.0)
[2025-05-16 06:33] LABS: Alanine Aminotransferase 15 U/L (10-49); Albumin, Serum 3.5 gm/dL (3.5-5.0); Albumin/Globulin Ratio 1.6 (1.2-2.2); Alkaline Phosphatase 69 U/L (46-116); Anion Gap 10 (7-16); Aspartate Amino Transferase 13 U/L (0-34); BUN/Creatinine Ratio 14 Ratio (12-20); Bilirubin,Total 0.3 mg/dL (0.3-1.2); Blood Urea Nitrogen 10 mg/dL (9-23); Calcium 8.4 mg/dL (8.3-10.6); Calcium (Corrected) 8.8 mg/dL (8.5-10.1); Carbon Dioxide 20.5 mMol/L (20.0-31.0); Cardiac Risk Estimate 3.8 RATIO (3.7-5.6); Chloride 111 mMol/L (98-107); Cholesterol 136 mg/dL (132-200); Creatinine (Component) 0.7 mg/dL (0.6-1.3); Estimated Creatinine Clearance 121.4 mL/min (>60); Globulin 2.2 gm/dL (2.3-3.5); Glucose 114 mg/dL (74-106); HDL Cholesterol 36 mg/dL (40-60); LDL Cholesterol,Calculated 78 mg/dL (0-130); Magnesium 1.9 mg/dL (1.6-2.6); Osmolality,Calculated 281 (275-295); Phosphorous 3.5 mg/dL (2.4-5.1); Potassium 3.8 mMol/L (3.4-5.1); Sodium 141 mMol/L (136-145); Thyroid Stimulating Hormone 1.98 uIU/mL (0.55-4.78); Total Protein 5.7 gm/dL (5.7-8.2); Triglycerides 111 mg/dL (30-150); eGFR > 60 See Note
[2025-05-16 08:00] VITALS: BP 113/69; PULSE 60; PULSE 63; RESP 15; TEMP 36.3; O2SAT 98
[2025-05-16] MEDS: ASPIRIN EC 81 MG TABEC PO (08:32)
--- NOTE | 2025-05-16 09:08 | ESDS_ITS ---
<Statement entered by Chanelle Auguste DO - 05/16/25 13:23> I, Chanelle Auguste DO, attest that I was physically present for the shepard portions of the service and evaluated the patient with the resident and I reviewed and discussed the case with the resident and agree with the resident's findings and plans of care as documented above <Statement entered by Harsh Rodas MD - 05/16/25 09:35> Patient was examined with the team including attending physician. Note reviewed, I agree with the discharge plan as documented. - Harsh Rodas MD PGY 3 Disclaimer: The document may contain phonetic/typographic errors due to voice recognition software. Planned Discharge Date 05/16/25 DS: Providers Provider Date of admission: 05/15/25 14:33 Primary care physician: Physician Kelly Primary/Family Admitting Provider: Chanelle Auguste DO Attending Provider on Admission: Chanelle Auguste DO Consults: 05/15/25 12:21 Consult to Neurology / Tele-Neurology Routine Comment: Consulting Provider: [facility] 05/15/25 15:00 Consult to Neurology / Tele-Neurology Routine Comment: Consulting Provider: Jose Alejandro Vidal Referral Physical Therapy Routine Comment: Physician Instructions: Referral Speech Therapy Routine Comment: Attending Provider on DC: Isai Ramos Discharging Provider: Isai Ramos DS: Diagnosis Problem List Completed Was Problem List Reviewed/Reconciled?: Yes Hospital Course Hospital Course Hospital course: Maribel Miner, 39 year old female with past medical history of Kristi disease, mitral valve prolapse, H. Pyolori, and bilateral carpal tunnel disease was admitted to [facility] on 05/15/2025 for weakness and n umbness of left upper and lower extremity. In the ED patient's vital signs were unremarkable, and she was found to have weakness in upper and lower left extremity on physical exam with strength 3/5 on left extremities and 5/5 on right. Tele neuro was consulted which found the NIHSS score to be 0. Head/Neck CTA and Head CT were unremarkable for any acute events. Patient was admitted for further work up of neurological deficit and stroke rule out. Brain MRI with MRA was also negative for any acute findings. Inpatient neurology was consulted and diagnosed the patient with FNA (functional neurological disorder). On 05/16/25 patient is back to baseline and no longer has any motor or sensory deficits in any of the extremities. Patient to be discharged and followed outpatient with PCP within 1 week and neurology (Dr. Vidal) within 2 weeks. 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 Please monitor stress levels. - Return to ED if symptoms worsen Patient care and discharge plan discussed with my attending Dr. Gomez and my senior resident Dr. Rodas. Jose Seymour (OMS IV) Dr. Rodas (PGY III) Time Spent with Patient Time attestation: Total time spent providing and/or coordinating discharge services: Time spent: Greater than 30 minutes Exam Vital Signs Temp Pulse Resp BP Pulse Ox O2 Del Method 97.3 F 60 15 113/69 98 Room Air 05/16/25 08:00 05/16/25 08:00 05/16/25 08:00 05/16/25 08:00 05/16/25 08:00 05/16/25 08:00 Narrative Exam General: Patient is fully alert and oriented. In no acute distress. Cardio: RRR, no murmurs, gallops or rubs appreciated. Resp: Normal lung sounds, no rales or wheezing auscultated. MSK/Extremities: No bruising or skin changes visible. No presence of trace or pitting edema in lower extremities bilaterally, dorsalis pedis pulses +2 bilaterally. Bilateral upper and lower extremity strength 5/5 (back to baseline). No upper extremity drift. GI: No abdominal distension, normal bowel sounds. No abdominal tenderness in any quadrants. Neuro: AAOx3, cranial nerves 2-12 intact. No focal motor or sensory deficits in the UE or LE bilat. Psych: Good judgment, thought and behavior. Cooperative Discharge Plan Plan Patient Disposition: HOME (Self Care) Patient condition on transfer: Stable Care Plan Goals: - Follow up with PCP outpatient - Follow up with Neurology in 2 weeks for EMG studies for carpal tunnel - You dont need any medications at this time. Please monitor stress levels. - Return to ED if symptoms worsen Prescriptions/Referrals Prescriptions/Med Rec: No Action No Known Home Medications Referrals: No Primary/Family,Physician [Primary Care Provider] Patient/Caregiver Discharge Instructions Discharge Activity: activity as tolerated Education Materials: Anatomy of a Normal Spine, Back Basics: A Healthy Spine, ED Conversion Disdr Conversion Reac Print Language: Scottish Stand Alone Forms: Kell Award Info., Patient Portal Info Letter Discharge Order Discharge Orders: Discharge (Routine); Ordered 05/16/25 Ordered By: Harsh Rodas Quality Discharge Quality Measures VTE prophylaxis
--- NOTE | 2025-05-16 09:24 | PC.SS ---
Patient is a 39 year old female presenting to the hospital for neurological deficit lue. PHOTOGRAPH EDITOR met with patient at bedside, role and reason for visit was explained. Patient confirmed demographic information and provided phone number [phone]. Patient stated that in case she is unable to make medical decisions on her own she would like her Anatoly PH: [phone] to make them. Patient does not use any medical equipment. PCP is Dr. Rodas last appointment was in March 2025. The pharmacy of choice is [facility]. Decision maker: Anatoly PH: [phone] PCP: Dr. Rodas D/c: home
--- NOTE | 2025-05-16 12:09 | PC.NURSE ---
patient left the floor without escort after discharge instructions, did not wait to the SOFTLINES SUPERVISOR.
== END 2025-05-16 10:30 | disposition home or self-care (01) | DRG 948 ==
LOC: SERX 13:51 → SERHOLD 15:10 → S2NX 17:11
PROVIDERS: Nurse Practitioner Family; Admitting Provider Internal Medicine; Emergency Provider Family Medicine; Visit Provider Internal Medicine
DX: R53.1 Weakness (principal); R20.0 Anesthesia of skin; I34.1 Nonrheumatic mitral (valve) prolapse; Z79.82 Long term (current) use of aspirin; E06.3 Autoimmune thyroiditis; G56.00 Carpal tunnel syndrome, unspecified upper limb
CPT/HCPCS: 36415; 70450; 70496; 70498; 70544; 71045; 80053; 80061; 80307; 81001; 83036; 83735; 84100; 84443; 84484; 84703; 85025; 85610; 85730; 92610; 93005; 99285; A4649; J2470; J7030; Q9967; A9270